=== PATIENT | female | born 1955 | race Caucasian/White ===

== ENCOUNTER → 2017-05-07 | Outpatient (CLI) | payer BC ==
[~2017-05-07] MED LIST: ASCO10003 PO; CHOL100027 PO; IBUP-1450 PO; LEVO75TA PO; LORA10CA2 PO; MULT1CAP14 PO; [UNRECOGNIZED DRUG - CODE] TD
--- NOTE | 2017-05-09 08:13 | MAMMOGRAPHY REPORT ---
BILATERAL DIGITAL SCREENING MAMMOGRAM WITH CAD: 05/07/2017 CLINICAL HISTORY: Routine screening. Patient has no complaints. TECHNIQUE: Bilateral CC and MLO views were obtained. Current study was also evaluated with a Compute r Aided Detection (CAD) system. COMPARISON: Comparison is made to exams dated: 04/07/2015 mammogram, 02/16/2014 mammogram, 01/01/2010 m ammogram - [facility], 09/05/2008, 08/31/2007, and 12/07/2003 mammogram - [facility]. BREAST COMPOSITION: There are scattered areas of fibroglandular density in both breasts. FINDINGS: A linear dense scar marker overlies the superior right breast. There are a few benign rim calcifications bilaterally. Stable asymmetry in the inferior right breast on the MLO view. No suspi cious mass, architectural distortion or cluster of suspicious microcalcifications is seen. IMPRESSION: ACR BI-RADS CATEGORY 1: NEGATIVE There is no mammographic evidence of malignancy. A 1 year screening mammogram is recommended. The pa tient will receive written notification of the results. Approximately 10% of breast cancers are not detected with mammography. A negative mammographic report should not delay biopsy if a clinically suggestive mass is present. Jeny Jordan M.D. ay/:05/07/2017 16:51:51 Through Operator: Ava Dudley, [facility] letter sent: Normal 1/2 BI-RADS Code: ACR BI-RADS Category 1: Negative
== END | disposition home or self-care (01) ==
LOC: C.MAMM 14:09
PROVIDERS: ATTEND Family Medicine
DX: Z12.31 Encounter for screening mammogram for malignant neoplasm of breast (principal)

== ENCOUNTER 2023-01-15 09:45 | Observation (INO) ==
--- NOTE | 2023-01-15 10:24 | Emergency Department Note ---
History of Present Illness General Chief complaint: Chest Pain Stated complaint: CHEST PAINS,SHOULDER PAIN,GETS WORSE LAYING DOWN Time Seen by Provider: 01/15/23 10:01 History of Present Illness Maximum Pain Intensity: 8 67-year-old female presents emergency department with an onset of substernal chest pain that was radiating to her left scapula that started last night while at rest. Patient states that at that time it was extremely intense and she decided to take aspirin and Tylenol and then went to bed. Patient states it was intermittent if she laid flat it seemed to exacerbate with movement. Patient denies any specific abdominal pain. Patient denies nausea diaphoresis radiation of the pain to the left arm neck jaw or back in the mid scapular region. Patient's had no prior history of cardiac evaluation. Patient currently states that she is pain-free. There are no other mitigating or alleviating factors. She did take Tylenol prior to arrival Home Medications Medication Instructions Recorded Confirmed Type LORATADINE (CLARITIN) 10 mg PO Q3D #0 caps 06/03/12 01/15/23 History Ibuprofen (MOTRIN) 600 mg PO Q6HR PRN #0 tabs 07/13/12 01/15/23 History ASCORBIC ACID (VITAMIN C) 1,000 mg PO DAILY ##0 11/15/12 01/15/23 History CHOLECALCIFEROL (VITAMIN D 1000 2,000 inter.unit PO DAILY #0 caps 11/15/12 01/15/23 History UNIT) LEVOTHYROXINE SODIUM (SYNTHROID) 75 mcg PO DAILY #0 tabs 11/15/12 01/15/23 History garlic 1 tab PO DAILY 01/15/23 01/15/23 History Allergies Allergy/AdvReac Type Severity Reaction Status Date / Time acetaminophen Allergy Severe HIVES Verified 06/04/12 19:27 guaifenesin Allergy Severe HIVES Verified 06/04/12 18:53 hydrocodone Allergy Severe HIVES Verified 06/04/12 18:53 levofloxacin Allergy Severe HIVES Verified 06/04/12 18:52 oxycodone Allergy Severe HIVES Verified 06/04/12 19:27 azithromycin Allergy Hives Verified 05/28/19 10:31 Past Med/Surg History Medical History (Updated 01/15/23 @ 14:00 by Ted Thurman DO) GERD (gastroesophageal reflux disease) Hx of hepatitis C Vitamin D deficiency Surgical History (Updated 01/15/23 @ 13:13 by Ivone Carmen PA-C) Hx of partial thyroidectomy Family History (Updated 01/15/23 @ 13:14 by Ivone Carmen PA-C) Mother Thyroid disorder Heart disease Father Heart disease Social History Smoking Status: Current every day smoker Tobacco Type: Cigarettes Preferred Language: [place] Citizen Feels Safe at Home: Yes Immunizations: Past medical history includes smoker, thyroid disease Review of Systems A total of 10 systems reviewed and were otherwise negative Cardiovascular: + chest pain Physical Exam Vital Signs Vital Signs - 24 hr 01/15/23 09:50 01/15/23 10:29 01/15/23 10:40 Temperature 36.4 C L Temperature Source Temporal Artery Scan Pulse Rate 100 H 83 Pulse Rate from SpO2 Sensor Respiratory Rate 14 Blood Pressure 142/76 H Blood Pressure Mean 98 Pulse Oximetry 98 Oxygen Delivery Method Room Air Room Air Sepsis Recent Fever Within 48 Hours No Sepsis New/Unexplained Change in Mental Status No Sepsis Action Taken by Nursing No Action Required 01/15/23 10:40 01/15/23 10:21 01/15/23 10:30 Temperature Temperature Source Pulse Rate 87 Pulse Rate from SpO2 Sensor 88 Respiratory Rate 17 Blood Pressure 127/71 Blood Pressure Mean 95 Pulse Oximetry 98 97 Oxygen Delivery Method Room Air Sepsis Recent Fever Within 48 Hours Sepsis New/Unexplained Change in Mental Status Sepsis Action Taken by Nursing 01/15/23 10:30 01/15/23 10:40 01/15/23 10:50 Temperature Temperature Source Pulse Rate 80 79 76 Pulse Rate from SpO2 Sensor 82 79 78 Respiratory Rate 11 L 15 10 L Blood Pressure Blood Pressure Mean Pulse Oximetry 97 98 96 Oxygen Delivery Method Sepsis Recent Fever Within 48 Hours Sepsis New/Unexplained Change in Mental Status Sepsis Action Taken by Nursing 01/15/23 11:00 01/15/23 11:00 01/15/23 11:10 Temperature Temperature Source Pulse Rate 76 76 Pulse Rate from SpO2 Sensor 77 77 Respiratory Rate 15 19 Blood Pressure 122/69 Blood Pressure Mean 106 Pulse Oximetry 95 95 Oxygen Delivery Method Sepsis Recent Fever Within 48 Hours Sepsis New/Unexplained Change in Mental Status Sepsis Action Taken by Nursing 01/15/23 11:20 01/15/23 11:30 01/15/23 11:30 Temperature Temperature Source Pulse Rate 70 75 Pulse Rate from SpO2 Sensor 71 74 Respiratory Rate 18 18 Blood Pressure 120/74 Blood Pressure Mean 88 Pulse Oximetry 96 98 Oxygen Delivery Method Sepsis Recent Fever Within 48 Hours Sepsis New/Unexplained Change in Mental Status Sepsis Action Taken by Nursing 01/15/23 11:40 01/15/23 11:55 Temperature Temperature Source Pulse Rate 75 81 Pulse Rate from SpO2 Sensor 75 Respiratory Rate 17 13 Blood Pressure Blood Pressure Mean Pulse Oximetry 95 Oxygen Delivery Method Sepsis Recent Fever Within 48 Hours Sepsis New/Unexplained Change in Mental Status Sepsis Action Taken by Nursing GENERAL: Patient is awake alert in no acute distress patient is resting comfortably and showing no signs of anxiety EYES: The conjunctivae are clear. The pupils are round and reactive. EARS, NOSE, MOUTH AND THROAT: The nose is without any evidence of any deformity. Mucous membranes are moist. Tongue is midline. NECK: The neck is nontender and supple. RESPIRATORY: Normal respiratory effort is noted there is no evidence of wheezing rhonchi or rales CARDIOVASCULAR: Regular rate and rhythm noted there no murmurs rubs or gallops normal S1 normal S2. GASTROINTESTINAL: The abdomen is soft. Abdomen is nontender. BACK: No midline tenderness or or step-off noted range of motion in flexion extension as well as rotation no signs of muscle spasm noted MUSCULOSKELETAL/EXTREMITIES: There is no evidence of gross deformity full range of motion is noted in the hips and shoulders. SKIN: There is no obvious evidence of any rash. There are no petechiae, pallor or cyanosis noted. NEUROLOGIC: Patient is awake alert and oriented x3 strength is symmetric Course Reevaluation(s) Reevaluation #1: Patient had complained of continued chest pain on my repeat examination it was intermittent in nature. I did repeat the troponin which was negative x2. Time: 12:50 Consultations Consultation #1: Case was discussed with the [facility]ist for admission Time: 01:20 Medical Decision Making Medical Records Attestation: I reviewed the patient's medical records. Home Medications Current Medication List: was personally reviewed by me Laboratory Data Attestation: I reviewed the patient's lab results. Labs interpreted by me unremarkable 01/15/23 10:14 01/15/23 10:14 Lab Results 01/15/23 01/15/23 01/15/23 Range/Units 10:14 10:14 10:14 WBC 8.93 (4.8-10.8) K/ul RBC 4.61 (4.20-5.40) M/uL Hgb 14.1 (12.0-16.0) g/dl Hct 41.4 (37.0-47.0) % MCV 89.8 (80.0-100.0) fL MCH 30.6 (25.0-34.0) pg MCHC 34.1 (32.0-36.0) g/dL RDW Std Deviation 45.1 (36.4-46.3) fL RDW Coeff of Se 13.7 (11.5-14.5) % Plt Count 264 (130-400) K/uL MPV 11.3 (9.4-12.4) fL Immature Gran % (Auto) 0.2 % Neut % (Auto) 74.6 % Lymph % (Auto) 17.6 % [place] % (Auto) 7.6 % Eos % (Auto) 0.0 % Baso % (Auto) 0.0 % Neut # (Auto) 6.66 H (1.40-6.50) K/uL Lymph # (Auto) 1.57 (1.2-3.4) K/uL [place] # (Auto) 0.68 H (0.11-0.59) K/uL Eos # (Auto) 0.00 (0-0.50) K/uL Baso # (Auto) 0.00 (0-0.2) K/uL Immature Gran # (Auto) 0.02 (0.01-0.20) K/uL PT 10.9 (9.0-12.0) Seconds INR 1.0 (0.9-1.1) APTT 32.8 H (21.0-31.0) Seconds PTT Ratio 1.2 Sodium 137 (136-145) mmol/L Potassium 3.9 (3.5-5.1) mmol/L Chloride 105 (98-107) mmol/L Carbon Dioxide 26 (21-32) mmol/L Anion Gap 6 (3-11) BUN 9 (6-23) mg/dl Creatinine 0.69 (0.6-1.2) mg/dl Est Cr Clr Drug Dosing 72.2 ml/min Est GFR ( Amer) 103.7 ml/min Est GFR (Non-Af Amer) 89.4 ml/min BUN/Creatinine Ratio 13.0 (10-20) Glucose 166 H (70-99(Fasting)) mg/dl Calcium 9.3 (8.6-10.3) mg/dl Total Bilirubin 0.8 (0.2-1.0) mg/dl AST 15 (13-39) U/L ALT 9 (7-52) U/L Alkaline Phosphatase 109 H (34-104) U/L Troponin I High Sens < 2.3 (0-14) pg/ml Total Protein 7.3 (6.0-8.3) gm/dl Albumin 4.2 (3.4-5.0) gm/dl Globulin 3.1 (2.5-4.0) gm/dl Albumin/Globulin Ratio 1.4 (0.9-2) Lipase 9 L (11-82) U/L 01/15/23 Range/Units 12:03 WBC (4.8-10.8) K/ul RBC (4.20-5.40) M/uL Hgb (12.0-16.0) g/dl Hct (37.0-47.0) % MCV (80.0-100.0) fL MCH (25.0-34.0) pg MCHC (32.0-36.0) g/dL RDW Std Deviation (36.4-46.3) fL RDW Coeff of Se (11.5-14.5) % Plt Count (130-400) K/uL MPV (9.4-12.4) fL Immature Gran % (Auto) % Neut % (Auto) % Lymph % (Auto) % [place] % (Auto) % Eos % (Auto) % Baso % (Auto) % Neut # (Auto) (1.40-6.50) K/uL Lymph # (Auto) (1.2-3.4) K/uL [place] # (Auto) (0.11-0.59) K/uL Eos # (Auto) (0-0.50) K/uL Baso # (Auto) (0-0.2) K/uL Immature Gran # (Auto) (0.01-0.20) K/uL PT (9.0-12.0) Seconds INR (0.9-1.1) APTT (21.0-31.0) Seconds PTT Ratio Sodium (136-145) mmol/L Potassium (3.5-5.1) mmol/L Chloride (98-107) mmol/L Carbon Dioxide (21-32) mmol/L Anion Gap (3-11) BUN (6-23) mg/dl Creatinine (0.6-1.2) mg/dl Est Cr Clr Drug Dosing ml/min Est GFR ( Amer) ml/min Est GFR (Non-Af Amer) ml/min BUN/Creatinine Ratio (10-20) Glucose (70-99(Fasting)) mg/dl Calcium (8.6-10.3) mg/dl Total Bilirubin (0.2-1.0) mg/dl AST (13-39) U/L ALT (7-52) U/L Alkaline Phosphatase (34-104) U/L Troponin I High Sens < 2.3 (0-14) pg/ml Total Protein (6.0-8.3) gm/dl Albumin (3.4-5.0) gm/dl Globulin (2.5-4.0) gm/dl Albumin/Globulin Ratio (0.9-2) Lipase (11-82) U/L Imaging Data Attestation: I personally reviewed and interpreted this imaging study as follows: My Impression: Chest x-ray interpreted by me negative for infiltrate Radiologist's Impression: Chest X-Ray 01/15/23 10:01 SINGLE VIEW CHEST CLINICAL HISTORY: Atypical chest pain FINDINGS: An AP, portable, upright chest radiograph is compared to study dated 02/29/2016. The cardiomediastinal silhouette is unremarkable noting atherosclerotic calcification of the thoracic aorta. Chronic interstitial thickening similar to previous. There is mild bibasilar scarring/atelectasis. The lungs and pleural spaces are otherwise clear. No pneumothorax is seen. The skeletal structures are osteopenic. The bony thorax is grossly intact. IMPRESSION: No active disease in the chest. ACT 112: Negative or not required by law. Electronically signed by: Orville Dahl M.D. 01/15/2023 10:32 AM ECG Data Attestation: I personally reviewed and interpreted this ECG as follows: Additional Comments: EKG interpreted by me normal sinus rhythm rate of 95 poor R wave progression the precordium, no obvious ST segment elevation or depression, normal intervals, normal axis Telemetry interpreted by me normal sinus rhythm rate of 95 MDM Narrative Medical decision making differential diagnosis includes angina, unstable angina, acute MO, acute coronary syndrome, musculoskeletal chest pain, GERD Plan is to check labs, EKG, chest x-ray, patient has taken aspirin in the past 24 hours Independent history was provided to me by the patient's at bedside Patient had 2 negative troponins however on repeat examination she states that she had increased chest pain again. Is intermittent now on the right side not pleuritic in nature. Due to this patient's heart score is 4, patient will be admitted for further investigation of chest pain of unknown etiology Impression & Plan Chest pain Discharge Plan Visit Data Chief Complaint: Chest Pain Stated Complaint: CHEST PAINS,SHOULDER PAIN,GETS WORSE LAYING DOWN ED Provider: Ted Thurman Discharge Problem: Chest pain Patient Disposition: Admitted As Inpatient Forms Stand Alone Forms: [facility] Prescriptions Prescriptions: No Action LORATADINE (CLARITIN) 10 MG capsule 10 mg PO Q3D Qty: 0 Ibuprofen (MOTRIN) 600 MG tablet 600 mg PO Q6HR PRN Qty: 0 Patient Comments: TAKE WITH FOOD NEEDED ASCORBIC ACID (VITAMIN C) 1,000 MG tablet 1,000 mg PO DAILY Qty: 0 CHOLECALCIFEROL (VITAMIN D 1000 UNIT) 1,000 UNIT capsule 2,000 inter.unit PO DAILY Qty: 0 LEVOTHYROXINE SODIUM (SYNTHROID) 75 MCG tablet 75 mcg PO DAILY Qty: 0 Rx Instructions: friday and wednesdays pt takes 2 75 mcg garlic 1 tab PO DAILY Rx Instructions: pt isnt sure of dose Referrals Referrals: Solis Perez MD [Primary Care Provider] -
--- NOTE | 2023-01-15 10:33 | XRay Report ---
SINGLE VIEW CHEST CLINICAL HISTORY: Atypical chest pain FINDINGS: An AP, portable, upright chest radiograph is compared to study dated 02/29/2016. The cardiom ediastinal silhouette is unremarkable noting atherosclerotic calcification of the thoracic aorta. Chr onic interstitial thickening similar to previous. There is mild bibasilar scarring/atelectasis. The l ungs and pleural spaces are otherwise clear. No pneumothorax is seen. The skeletal structures are ost eopenic. The bony thorax is grossly intact. IMPRESSION: No active disease in the chest. ACT 112: Negative or not required by law. Electronically signed by: Orville Dahl M.D. 01/15/2023 10:32 AM
[2023-01-15 10:49] LABS: Hematocrit (blood only) 41.4 % (37.0-47.0); Hemoglobin 14.1 g/dl (12.0-16.0); Immature Granulocytes # (auto) 0.02 K/uL (0.01-0.20); Immature Granulocytes % (auto) 0.2 %; Lymphocytes # (auto) 1.57 K/uL (1.2-3.4); Lymphocytes % (auto) 17.6 %; Mean Corpuscular Hemoglobin 30.6 pg (25.0-34.0); Mean Corpuscular Hgb Conc 34.1 g/dL (32.0-36.0); Mean Corpuscular Volume 89.8 fL (80.0-100.0); Mean Platelet Volume 11.3 fL (9.4-12.4); Monocytes # (auto) 0.68 K/uL (0.11-0.59); Monocytes % (auto) 7.6 %; Neutrophils # (auto) 6.66 K/uL (1.40-6.50); Neutrophils % (auto) 74.6 %; Platelet Count 264 K/uL (130-400); RDW Coefficient of Variation 13.7 % (11.5-14.5); RDW Standard Deviation 45.1 fL (36.4-46.3); Red Blood Count 4.61 M/uL (4.20-5.40); White Blood Count 8.93 K/ul (4.8-10.8)
[2023-01-15 11:08] LABS: Alanine Aminotransferase 9 U/L (7-52); Albumin Globulin Ratio 1.4 (0.9-2); Albumin Level 4.2 gm/dl (3.4-5.0); Alkaline Phosphatase 109 U/L (34-104); Anion Gap 6 (3-11); Aspartate Aminotransferase 15 U/L (13-39); Bilirubin,Total 0.8 mg/dl (0.2-1.0); Blood Urea Nitrogen 9 mg/dl (6-23); Calcium 9.3 mg/dl (8.6-10.3); Carbon Dioxide 26 mmol/L (21-32); Chloride 105 mmol/L (98-107); Creatinine Clr Calc Pharmacy 72.2 ml/min; Est GFR (African American) 103.7 ml/min; Est GFR (Non-African American) 89.4 ml/min; Globulin 3.1 gm/dl (2.5-4.0); Glucose 166 mg/dl (70-99(Fasting)); Lipase 9 U/L (11-82); Potassium 3.9 mmol/L (3.5-5.1); Sodium 137 mmol/L (136-145); Total Protein 7.3 gm/dl (6.0-8.3)
[2023-01-15 11:10] LABS: Troponin I High Sensitivity < 2.3 pg/ml (0-14)
[2023-01-15 11:17] LABS: Partial Thromboplastin Ratio 1.2; Partial Thromboplastin Time 32.8 Seconds (21.0-31.0); Prothrombin Time 10.9 Seconds (9.0-12.0)
--- NOTE | 2023-01-15 13:16 | History & Physical Report ---
Date of Service January 15, 2023 Assessment & Plan (1) Chest pain: Plan: - Admit to tele for observation for r/o - Trend cardiac biomarkers, 2 troponins are negative, Not ACS, more atypical chest pain, likely musculoskeletal vs cervical spine etiology - EKG reviewed as above personally in NSR, no new ST wave inversions or signs of ischemia - Checking neck xray to evaluate, pt also with hx of osteopenia and on Vit D replacement - possibly skeletal involvement - Check 2 D echo for completeness - If negative workup otherwise can consider a stress test tomorrow morning. - PT/OT consulted - Trial ibuprofen for antiinflammatory pain relief, topical trolamine (2) Tobacco use disorder: Plan: - Cessation of smoking was counseled at bedside, no nicotine patch at this time, can start tomorrow if cp improves with nsaid - Pt previously trialed Chantix but was not effective (3) Vitamin D deficiency: Plan: - Cont supplementation - will check with am labs (4) Hypothyroidism: Plan: - Hx of thyroid removal, takes levothyroxine 75 mcg all days excet Mon and Wed t akes 150 mcg - Check TSH and free T4 now DVT ppx: teds, scds CODE: FULL Dispo: From home, likely to remain in the hospital x 1-2 days A total of 75 minutes were spent with greater than 50% of that time face to face with the patient, personally reviewing all current laboratories, imaging studies, past medication reconciliation, outpatient chart review, and discussion with specialists to collaborate care for the patient with attending. Please see attending documentation for corrections and/or additions. History of Present Illness Chief Complaint: Chest pain Primary Care Provider: Solis Perez MD This is a 67-year-old female with PMHx of tobacco use, hypothyroidism s/p hx of hyperthyroidism treated with surgical [facility] thyroidectomy, history of hep C treated with interferon prior to new antiviral medicines and concerted, HLD, depressive disorder, GERD, vitamin D deficiency who presents to the hospital with complaints of chest pain. She has no previous history of hypertesions or other cardiovascular disease, diabetes or liver or kidney disease. Pt states last night she was sitting at desk around 6:30-7pm looking upward at computer screen for over an hour last night and thought that her neck was actually the problem. It hurt more when she turned her head to the left and right. She had some difficulty sleeping as discomfort occurred in all positions other than flat on her back. Her pain is intermittent and moves from her shoulder blades to front of the chest, and then into the left arm. She admits to having headache. Denies radiation up into her jaw. The pain is dull aching in nature and sometimes a deep breath improves it. Last night she took 3 baby aspirin and then closer to when she went to bed, took 2 tylenol tablets. Currently she still having chest pain between her chest and her back, rates it as a 5/10. Pt admits to smoking since age being a teenager and smokes 1 ppd, so over 50 years. She has tried quitting in the past with Chantix but has not worked for her. Surgical Hx: Cyst removal from ovary (pt reports weighed over 25 lbs) around [id number] Thyroid removal Allergies Allergy/AdvReac Type Severity Reaction Status Date / Time acetaminophen Allergy Severe HIVES Verified 06/04/12 19:27 guaifenesin Allergy Severe HIVES Verified 06/04/12 18:53 hydrocodone Allergy Severe HIVES Verified 06/04/12 18:53 levofloxacin Allergy Severe HIVES Verified 06/04/12 18:52 oxycodone Allergy Severe HIVES Verified 06/04/12 19:27 azithromycin Allergy Hives Verified 05/28/19 10:31 Home Medications Medication Instructions Recorded Confirmed Type ascorbic acid (vitamin C) 1,000 mg 1,000 mg PO DAILY 01/15/23 01/15/23 History tablet,extended release cholecalciferol (vitamin D3) 25 25 mcg PO DAILY 01/15/23 01/15/23 History mcg (1,000 unit) capsule levothyroxine 75 mcg tablet 75 mcg PO DAILY 01/15/23 01/15/23 History loratadine 10 mg tablet 10 mg PO Q3D 01/15/23 01/15/23 History Past Med/Surg History Medical History (Updated 01/15/23 @ 14:10 by Ivone Carmen PA-C) GERD (gastroesophageal reflux disease) Hx of hepatitis C Vitamin D deficiency Surgical History (Updated 01/15/23 @ 13:13 by Ivone Carmen PA-C) Hx of partial thyroidectomy Family History (Updated 01/15/23 @ 13:14 by Ivone Carmen PA-C) Mother Thyroid disorder Heart disease Father Heart disease Social History Smoking Status: Current every day smoker Tobacco Type: Cigarettes Cigarettes Per Day: 1 pack per day; Hx Alcohol Use: Yes Hx Substance Use: No Preferred Language: Swedish Communication Ability: Effective [employer] Required: No Beliefs That Will Affect Care: Jew Jew Beliefs: Quaker Current Living Situation: Spouse Other Information That Helps Us Care for You: No Feels Safe at Home: Yes Safety Concerns: Feels Safe At This Time Assistive Devices: Denture - Upper, Denture - Lower and Glasses Review of Systems Review of Systems: Constitutional: No fever, sweats or chills Eyes: No diplopia, no worsening or blurred vision ENT: normal hearing, no trouble swallowing Respiratory: No cough, sputum, dyspnea at rest or on exertion Cardiovascular:+ current chest pain rating 5/10, no tightness or palpitations Abdomen: No pain, nausea, vomiting, diarrhea or constipation Musculoskeletal: No joint pain, calf pain, swelling Neurologic: No weakness, numbness/tingling, or balance problems Psychiatric: No anxiety or depression Skin: No rash or itch Results & Data Results & Data Vital Signs (Past 12 Hours) Vital Signs Temp Pulse Resp BP Pulse Ox O2 Del Method 01/15/23 11:55 81 13 01/15/23 11:40 75 17 95 01/15/23 11:30 75 18 98 01/15/23 11:30 120/74 01/15/23 11:20 70 18 96 01/15/23 11:10 76 19 95 01/15/23 11:00 76 15 95 01/15/23 11:00 122/69 01/15/23 10:50 76 10 L 96 01/15/23 10:40 79 15 98 01/15/23 10:30 80 11 L 97 01/15/23 10:30 127/71 01/15/23 10:21 87 17 97 01/15/23 10:40 98 Room Air 01/15/23 10:40 Room Air 01/15/23 10:29 83 01/15/23 09:50 36.4 C L 100 H 14 142/76 H 98 Room Air Laboratory Results 01/15/23 01/15/23 01/15/23 12:03 10:14 10:14 WBC RBC Hgb Hct MCV MCH MCHC RDW Std Deviation RDW Coeff of Se Plt Count MPV Immature Gran % (Auto) Neut % (Auto) Lymph % (Auto) [place] % (Auto) Eos % (Auto) Baso % (Auto) Neut # (Auto) Lymph # (Auto) [place] # (Auto) Eos # (Auto) Baso # (Auto) Immature Gran # (Auto) PT 10.9 INR 1.0 APTT 32.8 H PTT Ratio 1.2 Sodium 137 Potassium 3.9 Chloride 105 Carbon Dioxide 26 Anion Gap 6 BUN 9 Creatinine 0.69 Est Cr Clr Drug Dosing 72.2 Est GFR ( Amer) 103.7 Est GFR (Non-Af Amer) 89.4 BUN/Creatinine Ratio 13.0 Glucose 166 H Calcium 9.3 Total Bilirubin 0.8 AST 15 ALT 9 Alkaline Phosphatase 109 H Troponin I High Sens < 2.3 < 2.3 Total Protein 7.3 Albumin 4.2 Globulin 3.1 Albumin/Globulin Ratio 1.4 Lipase 9 L 01/15/23 10:14 WBC 8.93 RBC 4.61 Hgb 14.1 Hct 41.4 MCV 89.8 MCH 30.6 MCHC 34.1 RDW Std Deviation 45.1 RDW Coeff of Se 13.7 Plt Count 264 MPV 11.3 Immature Gran % (Auto) 0.2 Neut % (Auto) 74.6 Lymph % (Auto) 17.6 [place] % (Auto) 7.6 Eos % (Auto) 0.0 Baso % (Auto) 0.0 Neut # (Auto) 6.66 H Lymph # (Auto) 1.57 [place] # (Auto) 0.68 H Eos # (Auto) 0.00 Baso # (Auto) 0.00 Immature Gran # (Auto) 0.02 PT INR APTT PTT Ratio Sodium Potassium Chloride Carbon Dioxide Anion Gap BUN Creatinine Est Cr Clr Drug Dosing Est GFR ( Amer) Est GFR (Non-Af Amer) BUN/Creatinine Ratio Glucose Calcium Total Bilirubin AST ALT Alkaline Phosphatase Troponin I High Sens Total Protein Albumin Globulin Albumin/Globulin Ratio Lipase Diagnostic Findings Chest X-Ray 01/15/23 10:01 SINGLE VIEW CHEST CLINICAL HISTORY: Atypical chest pain FINDINGS: An AP, portable, upright chest radiograph is compared to study dated 02/29/2016. The cardiomediastinal silhouette is unremarkable noting atherosclerotic calcification of the thoracic aorta. Chronic interstitial thickening similar to previous. There is mild bibasilar scarring/atelectasis. The lungs and pleural spaces are otherwise clear. No pneumothorax is seen. The skeletal structures are osteopenic. The bony thorax is grossly intact. IMPRESSION: No active disease in the chest. ACT 112: Negative or not required by law. Electronically signed by: Orville Dahl M.D. 01/15/2023 10:32 AM Code Status & VTE Plan Code Status Full code - discussed with the patient at bedside Supervising Physician Co-Signing Physician Notes I have seen and examined the patient and have discussed the case with the provider above. I agree with the assessment and plan as stated. 67 yo F presents with intermittent neck and chest pain since last evening. She had some radiation of this pain from her posterior neck in to her chest. She reports just having pain in her neck and upper back at this point, and her chest pain is resolved. She states the Ibuprofen has significantly helped the pain in her neck. Workup in the ER reveals nonischemic EKG and negative troponin x 2. She reports no radiculopathy symptoms, but does feel some pain into her bilateral shoulders and down her right upper arm somewhat. C spine xray reveals no acute fracture or subluxation with mild intervertebral disc narrowing at C5- 6. Physical exam reveals a hemodynamically stable female in NAD. She is able to move around the bed with ease. She has full range of motion of her c-spine in all planes. She has tenderness with increased tissue turgor in the left>right trapezius. Normal strength and sensation in upper extremities. Atypical chest pain with associated upper neck pain, likely musculoskeletal in nature. Cont Ibuprofen and other supportive care efforts as needed. 2D echo as above. Monitor overnight and likely to home in am. She does have risk factors for CAD including active smoking and age. If symptoms are recurrent, may consider stress test. Smoking cessation strongly recommended. [place],
[2023-01-15] MEDS ORDERED: IBUPROFEN 200 MG TAB PO STA (14:02)
[2023-01-15] MEDS ORDERED: IBUPROFEN 200 MG TAB PO PRN (14:02)
[2023-01-15 15:12] LABS: Thyroid Stimulating Hormone 0.264 uIu/ml (0.300-4.500)
[2023-01-15 15:43] LABS: T4 Free Thyroxine 1.39 ng/dl (0.61-1.60)
--- NOTE | 2023-01-15 16:55 | XRay Report ---
XR cervical spine 2 or 3V HISTORY: 67 years-old Female Eval neck pain in extension COMPARISON: None TECHNIQUE: 3 views of the cervical spine FINDINGS: Surgical clips project over the lower neck soft tissues. No prevertebral edema. Mild intervertebral d isc space narrowing at C5-C6 with minimal multilevel spondylotic spurring and mild facet arthrosis. M oderate facet arthrosis at C7-T1. No acute fracture, subluxation or suspicious bone lesion. IMPRESSION: 1. No acute fracture or subluxation. 2. Mild intervertebral disc space narrowing at C5-C6. ACT 112: Negative or not required by law. The above report was generated using voice recognition software. It may contain grammatical, syntax o r spelling errors. Electronically signed by: Kevin Brenner M.D. 01/15/2023 4:54 PM
[2023-01-15] MEDS ORDERED: TROLAMINE SALICYLATE 10% CRM 255 APPLN/85 GM TUBE EXT PRN (17:18)
[2023-01-15] MEDS ORDERED: ONDANSETRON INJ 2 MG/ML 2 ML VIAL IV PRN (17:18)
[2023-01-15] MEDS ORDERED: ACETAMINOPHEN 325 MG TAB PO PRN (17:18)
[2023-01-15] MEDS: IBUPROFEN 800 MG TAB PO SCH (21:21)
[2023-01-16] MEDS ORDERED: LEVOTHYROXINE SODIUM 75 MCG TABLET PO SCH (06:30)
[2023-01-16 07:43] LABS: Hematocrit (blood only) 36.3 % (37.0-47.0); Hemoglobin 11.8 g/dl (12.0-16.0); Mean Corpuscular Hemoglobin 30.1 pg (25.0-34.0); Mean Corpuscular Hgb Conc 32.5 g/dL (32.0-36.0); Mean Corpuscular Volume 92.6 fL (80.0-100.0); Mean Platelet Volume 11.3 fL (9.4-12.4); Platelet Count 225 K/uL (130-400); RDW Coefficient of Variation 13.8 % (11.5-14.5); RDW Standard Deviation 46.8 fL (36.4-46.3); Red Blood Count 3.92 M/uL (4.20-5.40); White Blood Count 6.81 K/ul (4.8-10.8)
[2023-01-16] MEDS: IBUPROFEN 800 MG TAB PO SCH ×2 (07:56→14:29)
[2023-01-16 08:01] LABS: BUN Creatinine Ratio 16.2 (10-20); Calcium 8.7 mg/dl (8.6-10.3); Creatinine Clr Calc Pharmacy 67.1 ml/min; Est GFR (African American) 96.5 ml/min; Est GFR (Non-African American) 83.2 ml/min; Potassium 3.7 mmol/L (3.5-5.1)
[2023-01-16] MEDS ORDERED: CHOLECALCIFEROL 1,000 UNITS 25 MCG TAB PO SCH (09:00)
[2023-01-16] MEDS ORDERED: LORATADINE 10 MG TAB PO SCH (09:00)
--- NOTE | 2023-01-16 13:50 | Hospitalist Progress Note ---
Date of Service January 16, 2023 Assessment & Plan (1) Chest pain: Plan: - Admitted to medical telemetry unit -Chest pain seems to be musculoskeletal -Serial troponins have been unremarkable and the EKG did not show any ischemic changes - Checking neck xray to evaluate-did show mild intervertebral disc space narrowing involving C5-C6 - Check 2 D echo-EF of 60 to 65%, LV all motion is normal, aortic valve sclerosis mild without significant aortic valve stenosis, mild mitral regurgitation, trace tricuspid regurgitation, Doppler findings do not suggest pulmonary hypertension - PT/OT consulted-did very well with PT and OT - Trial ibuprofen for antiinflammatory pain relief, topical trolamine -No more pain and/or cardiac symptoms -Was advised to consider outpatient stress test through her PCP (2) Tobacco use disorder: Plan: - Cessation of smoking was counseled at bedside, no nicotine patch at this time, can start tomorrow if cp improves with nsaid - Pt previously trialed Chantix but was not effective (3) Vitamin D deficiency: Plan: - Cont supplementation - will check with am labs (4) Hypothyroidism: Plan: - Hx of thyroid removal, takes levothyroxine 75 mcg all days excet Mon and Wed takes 150 mcg - Check TSH and free T4 now -Normal T4 DVT ppx: teds, scds CODE: FULL Discharge home this afternoon Admission and Anticipated Discharge Date Admission Date: January 15, 2023 Subjective 01/16/2023 The patient was seen and examined in medical telemetry unit She was admitted with left-sided neck/shoulder/chest pain yesterday while she was watching TV Did not have any other symptoms associated with it She does not have any complaints today Review of Systems Review of Systems: All systems reviewed and are unremarkable except as noted below Physical Exam Physical Exam: Lying in bed comfortably Constitutional: well developed, well nourished and average body habitus; not ill appearing Eyes: PERRL, conjunctivae normal, anicteric sclerae ENMT: external ear and nose normal, oropharynx normal Neck: trachea midline, no thyromegaly Respiratory: no respiratory distress Auscultation: lungs clear to auscultation bilaterally Cardiovascular: Rate/Rhythm: regular rate and regular rhythm; not tachycardic Heart Sounds: normal S1 and normal S2; no murmur Extremities: no edema Gastrointestinal (Abdomen): Inspection/Auscultation: normal bowel sounds; abdomen not distended Percussion/Palpation: abdomen soft; abdomen nontender Musculoskeletal: No acute arthritis involving any joint Neurologic: normal touch/pain/proprioception and moves all extremities; no focal motor deficits Alert, awake and oriented x3 Psychiatric: A+Ox3, euthymic affect Lymphatic: no cervical or axillary lymphadenopathy Results & Data Results & Data Vital Signs (Past 12 Hours) Vital Signs Temp Pulse Pulse Resp BP Pulse Ox O2 Del Method 01/16/23 11:36 36.3 C L 78 18 102/60 98 Room Air 01/16/23 08:00 Room Air 01/16/23 07:48 36.3 C L 60 18 100/67 96 Room Air 01/16/23 07:00 60 01/16/23 03:36 36.6 C 63 18 92/45 L 95 Room Air Laboratory Results Short CBC 01/16/23 Range/Units 06:50 WBC 6.81 (4.8-10.8) K/ul Hgb 11.8 L (12.0-16.0) g/dl Hct 36.3 L (37.0-47.0) % Plt Count 225 (130-400) K/uL BMP 01/16/23 06:50 Sodium 138 Potassium 3.7 Chloride 106 Carbon Dioxide 26 BUN 12 Creatinine 0.74 Glucose 88 Calcium 8.7 Medications Administered Current Inpatient Medications Acetaminophen (Acetaminophen 325 Mg Tab) 650 mg PO Q4H PRN PRN Reason: Moderate Pain (Scale 4, 5, 6) Stop: 02/14/23 17:17 Ibuprofen (Ibuprofen 800 Mg Tab) 800 mg PO TID [facility] Stop: 02/14/23 20:59 Last Admin: 01/16/23 07:56 Dose: 800 mg Levothyroxine Sodium (Levothyroxine Sodium 75 Mcg Tablet) 75 mcg PO [id number] [facility] Stop: 02/15/23 06:29 Last Admin: 01/16/23 05:49 Dose: 75 mcg Levothyroxine Sodium (Levothyroxine Sodium 150 Mcg Tablet) 150 mcg PO [id number] [facility] Stop: 02/19/23 06:29 Loratadine (Loratadine 10 Mg Tab) 10 mg PO Q3D@0900 [facility] Stop: 02/15/23 08:59 Last Admin: 01/16/23 07:55 Dose: 10 mg Ondansetron HCl (Ondansetron Inj 2 Mg/Ml 2 Ml Vial) 4 mg IV Q4H PRN PRN Reason: Nausea And Vomiting Stop: 02/14/23 17:17 Trolamine Salicylate (Trolamine Salicylate 10% Crm 255 Appln/85 Gm Tube) 1 appln EXT TID PRN PRN Reason: Moderate Pain (Scale 4, 5, 6) Stop: 02/14/23 17:17 Vitamin D (Cholecalciferol 1,000 Units 25 Mcg Tab) 1,000 units PO DAILY [facility] Stop: 02/15/23 08:59 Last Admin: 01/16/23 07:55 Dose: 1,000 units
--- NOTE | 2023-01-17 17:16 | Discharge Summary ---
Date of Service January 16, 2023 Admission HPI Per Admitting Provider This is a 67-year-old female with PMHx of tobacco use, hypothyroidism s/p hx of hyperthyroidism treated with surgical UM thyroidectomy, history of hep C treated with interferon prior to new antiviral medicines and concerted, HLD, depressive disorder, GERD, vitamin D deficiency who presents to the hospital with complaints of chest pain. She has no previous history of hypertesions or other cardiovascular disease, diabetes or liver or kidney disease. Pt states last night she was sitting at desk around 6:30-7pm looking upward at computer screen for over an hour last night and thought that her neck was actually the problem. It hurt more when she turned her head to the left and right. She had some difficulty sleeping as discomfort occurred in all positions other than flat on her back. Her pain is intermittent and moves from her shoulder blades to front of the chest, and then into the left arm. She admits to having headache. Denies radiation up into her jaw. The pain is dull aching in nature and sometimes a deep breath improves it. Last night she took 3 baby aspirin and then closer to when she went to bed, took 2 tylenol tablets. Currently she still having chest pain between her chest and her back, rates it as a 5/10. Pt admits to smoking since age being a teenager and smokes 1 ppd, so over 50 years. She has tried quitting in the past with Chantix but has not worked for her. Surgical Hx: Cyst removal from ovary (pt reports weighed over 25 lbs) around [id number] Thyroid removal Principal Diagnosis Musculoskeletal chest pain, ACS has been ruled out Discharge Exam Lying in bed comfortably Constitutional well developed, well nourished and average body habitus; not ill appearing Eyes PERRL, conjunctivae normal, anicteric sclerae ENMT external ear and nose normal, oropharynx normal Neck trachea midline, no thyromegaly Respiratory no respiratory distress Auscultation: lungs clear to auscultation bilaterally Cardiovascular Rate/Rhythm: regular rate and regular rhythm; not tachycardic Heart Sounds: normal S1 and normal S2; no murmur Extremities: no edema Gastrointestinal (Abdomen) Inspection/Auscultation: normal bowel sounds; abdomen not distended Percussion/Palpation: abdomen soft; abdomen nontender Neurologic normal touch/pain/proprioception and moves all extremities; no focal motor deficits Psychiatric A+Ox3, euthymic affect Lymphatic no cervical or axillary lymphadenopathy Discharge Data Allergies Allergy/AdvReac Type Severity Reaction Status Date / Time acetaminophen Allergy Severe HIVES Verified 06/04/12 19:27 guaifenesin Allergy Severe HIVES Verified 06/04/12 18:53 hydrocodone Allergy Severe HIVES Verified 06/04/12 18:53 levofloxacin Allergy Severe HIVES Verified 06/04/12 18:52 oxycodone Allergy Severe HIVES Verified 06/04/12 19:27 azithromycin Allergy Hives Verified 05/28/19 10:31 Consultations 01/15/23 13:05 ED Decision to Admit Stat Hospital Course (1) Chest pain: - Admitted to medical telemetry unit -Chest pain seems to be musculoskeletal -Serial troponins have been unremarkable and the EKG did not show any ischemic changes - Checking neck xray to evaluate-did show mild intervertebral disc space narrowing involving C5-C6 - Check 2 D echo-EF of 60 to 65%, LV all motion is normal, aortic valve sclerosis mild without significant aortic valve stenosis, mild mitral regurgitation, trace tricuspid regurgitation, Doppler findings do not suggest pulmonary hypertension - PT/OT consulted-did very well with PT and OT - Trial ibuprofen for antiinflammatory pain relief, topical trolamine -No more pain and/or cardiac symptoms -Was advised to consider outpatient stress test through her PCP (2) Tobacco use disorder: - Cessation of smoking was counseled at bedside, no nicotine patch at this time, can start tomorrow if cp improves with nsaid - Pt previously trialed Chantix but was not effective (3) Vitamin D deficiency: - Cont supplementation - will check with am labs (4) Hypothyroidism: - Hx of thyroid removal, takes levothyroxine 75 mcg all days excet Mon and Wed takes 150 mcg - Check TSH and free T4 now -Normal T4 DVT ppx: teds, scds CODE: FULL Discharge home this afternoon Total Time Total Time Spent Total Time Spent (In Minutes): 35 minutes Discharge Plan Discharge Items Patient Disposition: Home - Self-Care Reason For Visit: CHEST AND NECK PAIN Discharge Diagnosis: Musculoskeletal chest pain, ACS has been ruled out Condition on Discharge: Good Activity: Resume your previous activity Non-emergency contact: Primary Care Provider Call non-emergency contact if: you have any medication questions and your symptoms worsen Follow-up/Referrals: Solis Perez MD [Primary Care Provider] - (Date & Time 01/23/2023 10:20 AM Provider Solis Perez MD [facility] ) Diet: Heart Healthy Addtl Attending Provider Instructions: Please take precautions to avoid falls Please take your medications as advised Keep appointment with your healthcare provider You can try [id number] ibuprofen to control the pain Pending Studies at Discharge: No Stand-Alone Forms: My [facility] [employer], Smoking Cessation Medications and DC Order Prescriptions: Continued ascorbic acid (vitamin C) 1,000 mg Tablet Extended Release 1,000 mg PO DAILY levothyroxine 75 mcg Tablet 75 mcg PO DAILY Rx Instructions: Takes 75 mcg all days and 150 mcg on Mon and Wed loratadine 10 mg Tablet 10 mg PO Q3D cholecalciferol (vitamin D3) 25 mcg (1,000 unit) Capsule 25 mcg PO DAILY Discharge Orders: Discharge Order (Routine); Ordered 01/16/23 Ordered By: Brandon Davis Admission Data Admit Date/Time: 01/15/23 16:30 Attending Provider: Brandon Davis Admit Provider: Missy Dickson Primary Care Provider: Solis Perez Other Providers: Missy Dickson Other Interventions: Discharge Summary Assessment (RN) Last Done: 01/16/23 14:40
--- NOTE | 2023-01-17 19:30 | Electrocardiogram Report ---
Test Reason : Blood Pressure : / mmHG Vent. Rate : 095 BPM Atrial Rate : 095 BPM P-R Int : 142 ms QRS Dur : 078 ms QT Int : 336 ms P-R-T Axes : 061 011 060 degrees QTc Int : 422 ms Normal sinus rhythm Septal infarct , age undetermined Abnormal ECG When compared with ECG of 15-NOV-2012 11:07, No significant change was found Confirmed by Jose Armando Wiggins ([id number]) on 01/17/2023 7:30:46 PM Referred By: Confirmed By:Jose Armando Wiggins
--- NOTE | 2023-01-17 19:35 | Electrocardiogram Report ---
Test Reason : Blood Pressure : / mmHG Vent. Rate : 079 BPM Atrial Rate : 079 BPM P-R Int : 160 ms QRS Dur : 076 ms QT Int : 382 ms P-R-T Axes : 036 -01 039 degrees QTc Int : 438 ms Normal sinus rhythm Septal infarct (cited on or before 15-JAN-2023) Abnormal ECG When compared with ECG of 15-JAN-2023 09:57, No significant change Confirmed by Jose Armando Wiggins ([id number]) on 01/17/2023 7:35:10 PM Referred By: REFERRED SELF Confirmed By:Jose Armando Wiggins
[2023-01-20] MEDS ORDERED: LEVOTHYROXINE SODIUM 150 MCG TABLET PO SCH (06:30)
== END 2023-01-16 15:16 | disposition home or self-care (01) ==
LOC: ED 09:45 → 2N 15:03 → SUATTDRO 16:30 → INTOOBSV 16:30 → 2N 16:30